=== PATIENT | male | born 2000 | race Two or more races ===

== ENCOUNTER 2021-06-02 19:09 | Emergency (ER) | payer OTHER, SELFPAY ==
--- NOTE | ~2021-06-02 | CT_ITS ---
EXAMINATION: NONCONTRAST HEAD CT NONCONTRAST MAXILLOFACIAL CT NONCONTRAST CERVICAL SPINE CT INDICATION INFORMATION: Trauma at work. COMPARISON: None. TECHNIQUE: Separate noncontrast CT examinations of the head, maxillofacial bones, and cervical spine were performed. Coronal and sagittal images were created for each examination at the technologist workstation. This CT examination was performed using dose optimization techniques as appropriate, variously including the following: *Automated exposure control *Adjustment of mA and/or kV according to patient size (this includes techniques or standardized protocols for targeted exams where dose is matched to indication/reason for exam; i.e. extremities or head) *Use of iterative reconstruction technique DLP: 399 mGy-cm FINDINGS: Head: There is no evidence of acute intracranial hemorrhage or territorial infarction. No abnormal mass effect or midline shift is seen. Hartley to white matter differentiation is well preserved. No extra-axial fluid collections are identified. No hydrocephalus. No significant volume loss. There is no abnormal attenuation within the brain parenchyma. No acute soft tissue abnormality. No calvarial fracture. The mastoid air cells are well aerated. Maxillofacial: No acute maxillofacial fractures are seen. The frontal, maxillary, ethmoid, and sphenoid sinuses are well aerated. The nasal septum is midline. The mandibular heads are well-seated in the condylar fossa. There are numerous periapical lucencies, largest occupying approximately 2 cm on sagittal image 124 off series 23 within right superior molars. The orbits demonstrate a normal appearance bilaterally. The globes are intact, and there are no suspicious findings to suggest retrobulbar hemorrhage. Cervical spine: There is anatomic alignment of the vertebral bodies and posterior elements. The atlantoaxial and atlantooccipital articulations are intact. Vertebral body heights and intervertebral disc spaces are maintained. No evidence of acute fracture. No prevertebral soft tissue swelling. Visualized portions of the lung apices are unremarkable. The thyroid gland is unremarkable. CT/CT cervical spine wo con IMPRESSION: No acute intracranial abnormality. No acute maxillofacial fractures. Incidental note is made of numerous large periapical lucencies for which dental consultation is advised.
[2021-06-02 19:25] VITALS: BP 117/67; PULSE 72; RESP 16; TEMP 37.4; O2SAT 97; BMI 29.9
--- NOTE | 2021-06-02 19:39 | ED.GENADULT ---
HPI - General Adult General Chief complaint: Wound/Laceration Stated complaint: lac to right eye Time Seen by Provider: 06/02/21 19:30 Source: patient Mode of arrival: ambulatory Limitations: no limitations History of Present Illness HPI narrative: A 1-year-old male presents to ED for right forehead laceration after wood Pallet at work fell on his head. Patient admits to falling to the ground due to head trauma from wood Pallet but did not lose consciousness. Patient denies any other trauma. Patient states no nausea, vomiting, or dizziness. Related Data Allergies Allergy/AdvReac Type Severity Reaction Status Date / Time No Known Allergies Allergy Unverified 01/03/20 17:28 [No Known Allergies*] poison letty Allergy Unknown rash Uncoded 06/18/14 00:00 Review of Systems Review of Systems: Wood Pallet fell on head Yes all other systems are reviewed and are negative [facility] Past Medical History Medical History (Updated 06/02/21 @ 21:38 by ALISA Huertas) No known health problems Social History Social History Advance Directives: No Advance Directives Information Provided: Yes Physical Exam ED Vital Signs: Vital Signs - 24 hr 06/02/21 19:25 Temperature 99.3 F Pulse Rate 72 Respiratory Rate 16 Blood Pressure 117/67 Pulse Oximetry 97 BMI result Body Mass Index 29.9 Const Orientation/consciousness: patient oriented x3 HENMT Head: Yes normal to inspection, Yes No palpable skull fracture present and Yes normocephalic Head images: 1. Small right forehead laceration. Mild tenderness. Negative for ecchymosis. 2. Small abrasion no active bleeding. 3. Dry blood. No active bleeding Eyes General: appearance normal, both eyes and all related structures Neck Neck: Yes normal visual inspection, Yes full ROM, Yes no lymphadenopathy, Yes no meningeal signs, Yes trachea midline, Yes supple, No anterior neck swelling and No tender Chest Chest palpation & inspection: normal inspection of the chest and normal palpation of entire chest wall Resp Effort & Inspection: normal respiratory effort and able to speak in complete sentences Auscultation: clear to auscultation bilaterally Cardio Jugular venous distension: no JVD Heart sounds: S1 normal heart sound present and S2 normal heart sound present GI Inspection: Yes normal to inspection and No abdominal wall ecchymosis Palpation (GI): Soft to palpation, not firm, nontender, no guarding and not rigid General: No CVA tenderness and Yes no CVA tenderness Back/Spine/Pelvis Back: no CVA tenderness, No CVA tenderness and No back tenderness Skin General skin exam: no rashes or lesions noted and elasticity normal Neuro General: patient oriented x3, gait normal, no meningeal signs and CN's II-XI intact bilaterally Cranial nerves: Yes CN's II-XII intact bilaterally Extrem General: Yes normal to inspection and Yes full ROM Psych Appearance: grossly normal, well kempt and not disheveled Course Course Course Narrative: Patient sent for images. Will do laceration repair. D-dimer ordered. Patient given Tdap Reevaluation(s) Reevaluation #1: Wound clean with sterile saline and Betadine iodine. Wound anesthetized with lidocaine 2% 5 mL. Size 5 nylon sutures was used. Four simple sutures placed waiting for imaging results Time: 21:20 Reevaluation #2: Images came back normal Time: 21:35 Medical Decision Making MDM Narrative Medical decision making narrative: Head injury. Facial laceration Discharge Plan Discharge Clinical Impression: Facial laceration Patient Disposition: Home, Self-Care Instructions: Care For Your Stitches (DC), Laceration (DC), Head Injury (ED) Additional Instructions: You're images came back normal or negative for any neck fracture, facial fracture, or brain bleed. Sutures will need to be removed in 7 days. Return to ED for any vomiting blood, severe headache, dizziness, rectal bleeding, bloody urine, chest pain, shortness of breath, abdominal pain, lethargy, altered mental status, or any other concerning symptoms. Referrals: [facility] [Outside] - 2 days (Head injury at work) Stand Alone Forms: Work/School Release Print Language: Citizen Of [place]
[2021-06-02] MEDS: Acetaminophen 325 MG TABLET 650 MG PO (19:47)
[2021-06-02] MEDS: Diphth,Pertus(ACell),Tet Adult 0.5 ML SYRINGE IM (19:54)
[2021-06-02] MEDS: Lidocaine HCl 2 % MPF 5 ML VIAL INFILTRATI (19:55)
== END 2021-06-02 21:56 | disposition home or self-care (01) ==
PROVIDERS: Emergency Provider Internal Medicine
DX: S01.111A Laceration without foreign body of right eyelid and periocular area, initial encounter (principal); G44.309 Post-traumatic headache, unspecified, not intractable; H57.11 Ocular pain, right eye; M54.2 Cervicalgia; W26.9XXA Contact with unspecified sharp object(s), initial encounter; Y93.9 Activity, unspecified; Y92.9 Unspecified place or not applicable; Y99.0 Civilian activity done for income or pay
CPT/HCPCS: 12011; 70450; 70486; 72125; 90471; 90715; 99283; 99284

== ENCOUNTER → 2021-06-05 09:23 | Outpatient (BNVA) | payer OTHER, SELFPAY | PROVIDERS: Visit Provider Internal Medicine | DX: S01.81XA Laceration without foreign body of other part of head, initial encounter (principal); W20.8XXA Other cause of strike by thrown, projected or falling object, initial encounter | CPT/HCPCS: 99203; 99212 ==

== ENCOUNTER → 2021-06-09 14:48 | Outpatient (BNVA) | payer OTHER, SELFPAY | PROVIDERS: Visit Provider Internal Medicine | DX: S01.81XA Laceration without foreign body of other part of head, initial encounter (principal); X58.XXXA Exposure to other specified factors, initial encounter | CPT/HCPCS: 99213 ==

== ENCOUNTER 2022-11-25 07:17 | Emergency (ER) | payer SELFPAY ==
--- NOTE | ~2022-11-25 | XR_ITS ---
EXAMINATION: XR HAND, RIGHT CLINICAL INFORMATION: Hand pain with hard mass just medial to the hypothenar eminence COMPARISON: None available. TECHNIQUE: PA, lateral, and oblique views of the right hand. FINDINGS: The bones and soft tissues are normal. No fracture. Alignment is anatomic. Joint spaces are maintained. No erosions or soft tissue calcifications. XR/XR hand RT min 3V IMPRESSION: Normal right hand.
[2022-11-25 07:26] VITALS: BP 109/56; PULSE 82; RESP 16; TEMP 36.9; O2SAT 95; BMI 25.0
--- NOTE | 2022-11-25 07:49 | ED_ITS ---
HPI - Extremity Problem General Chief complaint: Extremity Injury, Upper Stated complaint: R hand swelling Time Seen by Provider: 11/25/22 07:27 Source: patient Mode of arrival: ambulatory History of Present Illness HPI Narrative: 22-year-old male who reports worsening right, Moss hand pain, he is [id number] and works making pallets. Patient states that the pain at the palm has increasingly made it difficult for him to flex his hand but denies any fever, chills, injuries. Related Data Allergies Allergy/AdvReac Type Severity Reaction Status Date / Time No Known Allergies Allergy Unverified 01/03/20 17:28 [No Known Allergies*] poison letty Allergy Unknown rash Uncoded 06/18/14 00:00 Review of Systems Review of Systems: Pertinent positives and negatives as stated in [facility] Past Medical History Source: nursing notes reviewed Medical History No known health problems Social History Social History Advance Directives: No Advance Directives Information Provided: Yes Physical Exam Vital Signs: Vital Signs: Last Vital Signs Temp 98.5 F 11/25/22 07:26 Pulse 82 11/25/22 07:26 Resp 16 11/25/22 07:26 BP 109/56 L 11/25/22 07:26 Pulse Ox 95 11/25/22 07:26 O2 Del Method Nasal Cannula 11/25/22 07:26 BMI result Body Mass Index 25.0 VITAL SIGNS: Reviewed. GENERAL: Well developed, well nourished, in no acute distress. HEAD: Normocephalic/atraumatic EYES: PERRLA, EOMI EARS: Ext canals without abnormality NOSE: Nares patent bilateral OROPHARYNX: no oral lesions noted, posterior pharynx clear NECK: Supple, no adenopathy LUNGS: Normal breath sounds. No adventitious sounds or accessory muscle use. SpO2<95> CARDIOVASCULAR: Regular rate and rhythm without noted murmurs ABDOMEN: Soft, non-tender, non-distended with bowel sounds. MUSCULOSKELETAL: No tenderness, deformities, or effusions noted on gross inspect ion. EXTREMITIES: No cyanosis, clubbing or edema. RIGHT HAND: There is no erythema, induration, there is a mild swelling noted just radial to the hypothenar that is firm, mild tenderness to palpation, no fluctuance patient does experience difficulty with flexion and has discomfort within the forearm when this action is performed,apposition is most difficult for thumb to pinky SKIN: Inspection of the skin reveals no rashes NEUROLOGIC: Alert and oriented x 4. Strength and sensation to light touch were grossly intact x 4. Medical Decision Making Medical Decision Making MDM Narrative: 22-year-old male with history and clinical presentation, DDX: Fracture, hyperkeratosis, deep infection? I reviewed all investigations/imaging studies and there is no evidence of acute fracture dislocation otherwise my interpretation is in agreement with radiology's impression. My interpretation is patient has Dupuytren's contracture. Patient will be referred to Orthopedics as well as [facility] and instructed on Tylenol and ibuprofen. Differential Diagnosis Differential Diagnoses: The differential diagnosis associated with the presentation includes Please see the discussion above Admission/Observation Consideration of admission/observation: Escalation of care including admission/observation considered Please see the discussion above Radiology Impression Discussion of test interpretation with radiology: I have reviewed the radiologist's reading. Radiologist Impression: Please see the discussion above Discharge Plan Discharge Clinical Impression: Dupuytren's contracture of right hand Patient Disposition: Home, Self-Care Instructions: Dupuytren's Contracture (ED) Additional Instructions: 1. Please follow up with [facility], referral has been provided to you below. 2. You have also been given a referral to follow-up with orthopedics and should call their office today to set up an appointment for evaluation. 3. Please take [id number] Tylenol/ibuprofen as needed for pain control. Return to the ER for any worsening symptoms. Referrals: [facility] [Provider Group] Kolton Mendoza MD [Physician] -
== END 2022-11-25 09:32 | disposition home or self-care (01) ==
PROVIDERS: Emergency Provider Student in an Organized Health Care Education/Training Program
DX: M72.0 Palmar fascial fibromatosis [Dupuytren] (principal); M79.89 Other specified soft tissue disorders; M79.641 Pain in right hand
CPT/HCPCS: 73130; 99282; 99283

== ENCOUNTER 2023-02-20 09:16 | Emergency (ER) | payer MEDICAID, SELFPAY ==
--- NOTE | ~2023-02-20 | XR_ITS ---
EXAMINATION: XR WRIST, RIGHT XR HAND, RIGHT CLINICAL INFORMATION: Punched something this morning. Injury COMPARISON: 11/25/2022 TECHNIQUE: PA, lateral, and oblique views of the right and right hand FINDINGS: RIGHT: There is a slightly impacted and comminuted fracture of the distal fifth metacarpal with approximately 35 degree distal volar angulation angulation. I do not appreciate any obvious extension to the articular surface. No other acute bony abnormality seen. Soft tissue swelling in the region of the fifth metacarpal. XR/XR hand wrist RT IMPRESSION: Impacted and comminuted distal fifth metacarpal fracture with distal volar angulation.
[2023-02-20 09:23] VITALS: BP 111/65; PULSE 78; RESP 16; TEMP 36.8; O2SAT 98; BMI 28.8
--- NOTE | 2023-02-20 09:38 | PC.NURSE ---
Pt rpeorting he punched a wall yesterday out of anger, slight pain noted yesterday but no swelling/ This morning when he woke up swelling noted, with increased pain and numbness. +CMS, able to move fingers at this time.
--- NOTE | 2023-02-20 09:54 | ED_ITS ---
HPI - Extremity Problem General Chief complaint: Extremity Injury, Upper Stated complaint: R hand inj Time Seen by Provider: 02/20/23 09:36 Source: patient Mode of arrival: ambulatory Limitations: no limitations History of Present Illness HPI Narrative: Patient is a 22 old male presents emergency department for evaluation of pain to the right hand predominately at the base of the 4th and 5th digit into the 5th digit with decreased AROM to both digits. He has localized swelling over the dorsum. a was yesterday after punching a wall out of anger. He is right- hand dominant. Denies numbness tingling or cold sensation to the hand. Otherwise has no additional complaints. Related Data Previous Rx's Medication Instructions Recorded oxycodone 5 mg tablet 5 mg PO Q6H PRN pain #10 tabs 02/20/23 Allergies Allergy/AdvReac Type Severity Reaction Status Date / Time No Known Allergies Allergy Verified 02/20/23 09:22 [No Known Allergies*] poison letty Allergy Unknown rash Uncoded 06/18/14 00:00 Review of Systems Review of Systems: Yes all other systems are reviewed and are negative [facility] Past Medical History Attestation statement: The following information was validated with the patient. Source: old records reviewed Medical History No known health problems Social History Social History Advance Directives: No Advance Directives Information Provided: No Physical Exam Vital Signs: Vital Signs: Last Vital Signs Temp 98.2 F 02/20/23 09:23 Pulse 78 02/20/23 09:23 Resp 16 02/20/23 09:23 BP 111/65 02/20/23 09:23 Pulse Ox 98 02/20/23 09:23 O2 Del Method Room Air 02/20/23 09:23 BMI result Body Mass Index 28.8 Appearance: Alert.?Oriented to person, place and time. No acute distress.?Normal affect. Neck: Normal inspection.? Neck supple.?? CVS: Heart sounds normal. Normal heart rate and rhythm.? Pulses normal.?? Respiratory: No respiratory distress.? Lung sounds clear to auscultation bilaterally?? Skin: Skin warm and dry.? Normal skin color.? Extremities: Dorsum of right hand with localized swelling, diffuse tenderness over the 4th and 5th metacarpal decreased AROM to 4th and 5th digit. 2+ radial and ulnar pulse bilaterally. Full AROM to the wrist. CMS intact Neuro: Moves all extremities spontaneously. Sensation intact bilaterally. Ambulates with normal steady gait. Medical Decision Making Medical Decision Making MDM Narrative: patient is a 22 old [id number] male presenting to emergency department from traumatic right hand pain after punching a wall as per HPI. Physical exam findings noted in the above section. Obtained XR imaging to exclude fracture/ dislocation, upon my interpretation he has a fracture to the 5th metacarpal neck, which is in agreement with radiologist impression, he was placed in an ulnar gutter splint, remained neurovascularly intact distally after application, discussed RICE, pain management with acetaminophen/ ibuprofen, s ent prescription for oxycodone to patient's pharmacy for severe pain, educated on precautions with usage, [facility] reviewed, no conflicts. Provided with contact information for orthopedics to follow up outpatient. Discussed worrisome signs and symptoms that would warrant re-evaluation emergency department. All questions answered. Stable for discharge. Differential Diagnosis Differential Diagnoses: The differential diagnosis associated with the presentation includes ( As noted above) Independent Interpretation I performed an independent interpretation of an: Plain X-Ray ( as noted above) Radiology Impression Discussion of test interpretation with radiology: I have reviewed the radiologist's reading. External Record Review External record reviewed: Other ([facility]) Prescription Management I considered prescription management with: Pain Medication Procedures Orthopedic Splinting/Casting Injury #1: Side: right Upper Extremity Injury Location: hand Upper Extremity Immobilizer: ulnar gutter Discharge Plan Discharge Clinical Impression: Closed fracture of 5th metacarpal Qualifiers: Encounter type: initial encounter Metacarpal location: neck Laterality: right Patient Disposition: Home, Self-Care Instructions: Hand Fracture (ED) Additional Instructions: as discussed, you do have a fracture in the 5th metacarpal, a bone in your hand just below the knuckle. A splint was placed, this must remain in place at all times a cannot get wet. He will need to follow up with Orthopedics, please call the office 1st thing tomorrow morning to arrange for a follow-up visit. Apply ice 10-15 minutes 3-4 times daily, You can take ibuprofen 200 mg, 3 tablets (600mg) every 6-8 hours as needed for pain, in addition to Tylenol 500 mg, 2 tablets (1,000mg) every 4-6 hours as needed for pain, but not to exceed 3 doses daily (3,000mg).? have sent a prescription for oxycodone to your pharmacy to use as needed for severe pain uncontrolled with Tylenol and ibuprofen. This is a narcotic medication, it may make you drowsy, you should not drive, drink alcohol, or work while taking this medication. Please return back to emergency department any new or worsening symptoms or concerns. Prescriptions: New oxycodone 5 mg tablet 5 mg PO Q6H PRN (Reason: pain) Qty: 10 0RF Rx Instructions: Partial Fill upon patient request. Referrals: Jodie العلي MD [Physician] - Stand Alone Forms: Work/School Release
== END 2023-02-20 10:28 | disposition home or self-care (01) ==
PROVIDERS: Emergency Provider Emergency Medicine
DX: S62.339A Displaced fracture of neck of unspecified metacarpal bone, initial encounter for closed fracture (principal); M79.641 Pain in right hand; W22.09XA Striking against other stationary object, initial encounter; Y93.9 Activity, unspecified; Y92.9 Unspecified place or not applicable; Y99.9 Unspecified external cause status
CPT/HCPCS: 73110; 73130; 99284

== ENCOUNTER 2023-02-25 08:39 | Outpatient (REF) | payer MEDICAID, SELFPAY ==
--- NOTE | ~2023-02-25 | XR_ITS ---
EXAMINATION: XR HAND, RIGHT CLINICAL INFORMATION: Pain. COMPARISON: Prior radiographs, most recently 02/20/2023. TECHNIQUE: PA, lateral, and oblique views of the right hand. FINDINGS: Bony alignment and mineralization are normal. There is stable alignment of a mildly angulated, comminuted boxer's fracture of the right fifth metacarpal. Fracture lines are again seen, and there is no significant new callus formation. No dislocation is seen. The proximal and distal carpal rows are intact. No focal soft tissue swelling, gas or foreign body is seen. XR/XR hand RT min 3V IMPRESSION: There is stable alignment of a comminuted, mildly angulated boxer's fracture of the right fifth metacarpal bone.
== END 2023-02-25 08:40 | disposition home or self-care (01) ==
LOC: HO.HOSX 08:39
PROVIDERS: Visit Provider Physician Assistant
DX: S62.336A Displaced fracture of neck of fifth metacarpal bone, right hand, initial encounter for closed fracture (principal)
CPT/HCPCS: 26600; 73130; 99212

== ENCOUNTER 2023-02-25 13:26 | Outpatient (AMB) | payer MEDICAID, SELFPAY ==
[2023-02-25 13:32] VITALS: BMI 28.8
--- NOTE | 2023-02-25 13:32 | A.OFFVIS_ITS ---
Intake Vital Signs 02/25/23 13:32 Height 5 ft 5 in Weight 173 lb BMI 28.8 Handedness Right Intake Visit Reasons: FC- FX of 5th metacarpal Rt hand Intake Note: Miguel Ángel is a 22 year old right hand dominant male who presents today for a evaluation for his right 5th metacarpal, DOI 02/19/23. Patient reports punching a while out of anger. He states not being able to move his pinky due to it causing him a lot of pain. Denies numbness and tingling. Allergies No Known Allergies [No Known Allergies*] Allergy (Verified 02/25/23 13:33) poison letty Allergy (Unknown, Uncoded 06/18/14 00:00) rash HPI FC- FX of 5th metacarpal Rt hand HPI Details 22-year-old right hand dominant male who presents to the office today for right 5th metacarpal injury s/p punching out of anger, 02/19/23. He states he is unable to move his pinky finger as he is experiencing sever pain upon movement. he denies any numbness or tingling. [facility] Medical History No known health problems Review of Systems Const All systems reviewed & are unremarkable except as noted in HPI and below Physical Exam Vital Signs: BMI result Body Mass Index 28.8 Const General: cooperative and no acute distress Orientation/consciousness: patient oriented x3 Resp Effort & Inspection: normal respiratory effort and able to speak in complete sentences Cardio Peripheral pulses: Peripheral pulses 2+ throughout Neuro General: patient oriented x3 Extrem Other: Right hand: Normal to inspection. There is some tenderness over the neck of the 5th metacarpal. There is no scissoring or angulation of the small finger. He can fully extend and bring his hand to a closed fist. Office Procedures Casting/Splints 38217-Wasa/Wrist Cast Application Procedure code (CPT) selection complete Fracture Care Fracture Billing Code: Fracture Billing Code Results Reviewed Results Reviewed: Xrays were obtained in the office today and personally reviewed by me of the right hand show minimally displaced 5th metacarpal neck fx Assessment & Plan Assessment & Plan (1) Anibal's metacarpal fracture, neck, closed: Code(s): S62.339A - Displaced fracture of neck of unspecified metacarpal bone, initial encounter for closed fracture Qualifiers: Encounter type: initial encounter Qualified Code(s): S62.339A - Displac ed fracture of neck of unspecified metacarpal bone, initial encounter for closed fracture Plan He was placed in a finger spica cast for the next 3-4 weeks at which point he will return to the office for cast off and new x-rays. He will avoid any type of lifting, pushing, pulling or carrying greater than a cellphone to prevent risk of further displacement. He does express understanding and will follow-up as discussed. Orders: Orders XR hand RT min 3V 02/25/23 M79.641 - Pain in right hand Patient Instructions: Scribed for Uche Nicholas PA-C, by Darin Grove adjunct faculty for medical terminology, on 02/25/2023 at 1:30 PM EST. IUche PA-C, have personally reviewed and agree with the information entered by the scribe. Coding Level of Care Code New Pt Level 3 (70263) Diagnoses Closed boxer's fracture, initial encounter S62.339A Encounter type: initial encounter CPT Codes Casting - CPT: 30278-Ifco/Wrist Cast Application ([id number]) Fracture Care - Fracture Billing Code: Fracture Billing Code ([id number])
== END 2023-02-25 14:23 | disposition home or self-care (01) ==
PROVIDERS: Visit Provider Physician Assistant
DX: S62.306A Unspecified fracture of fifth metacarpal bone, right hand, initial encounter for closed fracture (principal); W22.09XA Striking against other stationary object, initial encounter
CPT/HCPCS: 26600; 99203

== ENCOUNTER 2023-03-24 10:06 | Outpatient (AMB) | payer MEDICAID, SELFPAY ==
--- NOTE | 2023-03-24 10:10 | A.OFFVIS_ITS ---
Intake Vital Signs 03/24/23 10:12 Height 5 ft 5 in Weight 173 lb BMI 28.8 Intake Visit Reasons: ov- FX of 5th metacarpal Rt hand Intake Note: Miguel Ángel 22 yr old male presents today for his follow up visit for his right boxers fx from 02/19/23. Cast removed and xrays updated in office. Patient reports he has some sore and mild aches last night. Allergies No Known Allergies [No Known Allergies*] Allergy (Verified 03/24/23 10:11) poison letty Allergy (Unknown, Uncoded 03/24/23 10:11) rash HPI ov- FX of 5th metacarpal Rt hand HPI Details 22-year-old male who returns to the [facility] today for a follow-up of right 5th metacarpal fracture, 02/19/23. He states he has mild soreness and achiness in his hand last night but is doing well otherwise. 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 He has no other concerns today. [facility] Medical History No known health problems Review of Systems Const All systems reviewed & are unremarkable except as noted in HPI and below Physical Exam Vital Signs: BMI result Body Mass Index 28.8 Const General: cooperative and no acute distress Orientation/consciousness: patient oriented x3 Resp Effort & Inspection: normal respiratory effort and able to speak in complete sentences Cardio Peripheral pulses: Peripheral pulses 2+ throughout Neuro General: patient oriented x3 Extrem Other: Right hand: Normal to inspection. There is no tenderness over the neck of the 5th metacarpal. There is no scissoring or angulation of the small finger. He can fully extend and bring his hand to a closed fist. Results Reviewed Results Reviewed: Xrays were obtained in the office today and personally reviewed by me of the right hand show minimally displaced 5th metacarpal neck fx with interval healing Assessment & Plan Assessment & Plan (1) Boxmax's metacarpal fracture, neck, closed: Code(s): S62.339A - Displaced fracture of neck of unspecified metacarpal bone, initial encounter for closed fracture Qualifiers: Encounter type: initial encounter Qualified Code(s): S62.339A - Displaced fracture of neck of unspecified metacarpal bone, initial encounter for closed fracture Plan He was transitioned to removable Velcro wrist splint which he will wear like a cast. He can remove for hygiene only. He will continue with the current work status. He will avoid any type of lifting, pushing, pulling or carrying greater than a cellphone with the right hand. He will see us back in 6-8 weeks with x- rays, sooner if needed. Orders: Orders XR hand RT min 3V Today M79.641 - Pain in right hand Patient Instructions: Scribed for Uche Nicholas PA-C, by Darin Grove medical front desk coordinator, on 03/24/2023 at 10:15 AM EST. I, Uche Nicholas PA-C, have personally reviewed and agree with the information entered by the scribe. Coding Level of Care Code Global (97387) Diagnoses Closed boxer's fracture, initial encounter S62.339A Encounter type: initial encounter
[2023-03-24 10:12] VITALS: BMI 28.8
== END 2023-03-24 10:38 | disposition home or self-care (01) ==
PROVIDERS: Visit Provider Physician Assistant
DX: S62.339A Displaced fracture of neck of unspecified metacarpal bone, initial encounter for closed fracture (principal)
CPT/HCPCS: 99024

== ENCOUNTER 2023-03-24 12:37 | Outpatient (REF) | payer SELFPAY ==
--- NOTE | ~2023-03-24 | XR_ITS ---
EXAMINATION: XR HAND, RIGHT CLINICAL INFORMATION: Pain in right hand. COMPARISON: 02/25/2023 TECHNIQUE: PA, lateral, and oblique views of the right hand. FINDINGS: Redemonstration of a comminuted, mildly angulated fracture at the distal aspect of the fifth metatarsal. There is some increased density along the fracture line, characteristic of healing. XR/XR hand RT min 3V IMPRESSION: Healing comminuted, mildly angulated fracture of the distal aspect of the fifth metacarpal. Fracture lines are still visible.
== END 2023-03-24 12:38 | disposition home or self-care (01) ==
LOC: HO.HOSX 12:37
PROVIDERS: Visit Provider Physician Assistant
DX: M79.641 Pain in right hand (principal); S62.336D Displaced fracture of neck of fifth metacarpal bone, right hand, subsequent encounter for fracture with routine healing; X58.XXXD Exposure to other specified factors, subsequent encounter
CPT/HCPCS: 73130; 99212

== ENCOUNTER 2023-03-30 01:54 | Emergency (ER) | payer SELFPAY ==
[2023-03-30 02:13] VITALS: BP 133/64; PULSE 67; RESP 18; TEMP 36.9; O2SAT 99
[2023-03-30] MEDS: Acetaminophen 325 MG TABLET 650 MG PO (07:32)
[2023-03-30 07:33] VITALS: BP 111/68; PULSE 64; RESP 18; TEMP 36.8; O2SAT 100
--- NOTE | 2023-03-30 07:34 | PC.NURSE ---
pt continues to have dental pain, pt offered tylenol or motrin, pt felt tylenol would be better- pt medicated with tylenol per order, pt states he has been waiting since 0130 in the morning and inquiring about how much longer it will be as he will likely just call his dentist. This nurse explained the wait and if he does get ahold of his dentist if he could kindly tell registration that he is leaving prior to his departure that would be appreciated.
--- NOTE | 2023-03-30 09:05 | ED.GENADULT ---
HPI - General Adult General Chief complaint: Dental/Oral Stated complaint: right sided pain Time Seen by Provider: 03/30/23 09:04 Source: patient Mode of arrival: ambulatory Limitations: no limitations History of Present Illness HPI narrative: Patient is a 22 year old assigned male at with no reported medical history presenting to the emergency department today with right sided dental pain. Patient states that since yesterday he has had worsening right sided dental pain. Patient denies any dizziness, lightheadedness, abdominal pain, nausea, vomiting, fever, chills, blurry vision, double vision, loss of vision, chest pain, difficulty breathing, shortness of breath, back pain, night sweats, pain with urination, increased urinary frequency, increased urinary urgency, blood in his urine or stool, syncope or a near syncopal episode, recent trauma or falls, bowel incontinence, bladder incontinence, bowel retention, bladder retention, or any other complaints at this time. Onset (ago): day(s) (1) Location: mouth Radiation: non-radiation Severity: mild Severity scale (1-10): 2 Quality: aching and dull Pain Consistency: constant Relieving factors: none Exacerbating factors: none Associated symptoms: denies other symptoms Treatments prior to arrival: none Related Data Home Medications Medication Instructions Recorded Confirmed ibuprofen 800 mg tablet 800 mg PO TID 03/24/23 Previous Rx's Medication Instructions Recorded chlorhexidine gluconate 0.12 % 15 ml buccal BID #118 mL 03/30/23 mouthwash (Peridex) naproxen 500 mg tablet 500 mg PO BID 7 days #14 tabs 03/30/23 penicillin V potassium 500 mg 500 mg PO BID 10 days #20 tabs 03/30/23 tablet Allergies Allergy/AdvReac Type Severity Reaction Status Date / Time No Known Allergies Allergy Verified 03/30/23 02:13 [No Known Allergies*] poison letty Allergy Unknown rash Uncoded 03/24/23 10:11 Review of Systems Constitutional: Constitutional: Reports no additional constitutional complaints, Denies chills, Denies fever(s) and Denies night sweats Eyes: Eyes: Reports no additional eye complaints, Denies blurry vision, Denies change in vision, Denies diplopia, Denies eye discharge, Denies loss of vision and Denies eye pain ENT: Denies dizziness Comments: right sided dental pain Cardiovascular: Cardiovascular: Reports no additional cardiovascular complaints, Denies chest pain, Denies lightheadedness, Denies Loss of Consciousness and Denies dyspnea Respiratory: Respiratory: Reports no additional respiratory complaints and Denies dyspnea Gastrointestinal: Gastrointestinal: Reports no additional gastrointestinal complaints, Denies abdominal pain, Denies melena, Denies hematochezia, Denies change in bowel habits and Denies change in stool character Genitourinary: Genitourinary: Reports no additional male genitourinary complaints, Denies hematuria, Denies oliguria, Denies difficulty urinating, Denies dysuria, Denies urinary frequency, Denies urinary hesitancy, Denies urinary incontinence and Denies urinary urgency Musculoskeletal: Musculoskeletal: Reports no additional musculoskeletal complaints, Denies numbness and Denies tingling Neurologic: Denies dizziness, Denies loss of vision, Denies numbness and Denies tingling Psychiatric: Psychiatric: Reports no additional psychiatric complaints Endocrine: Endocrine: Reports no additional endocrine complaints Hematologic/Lymphatic: Hematologic/Lymphatic: Reports no additional hematologic/lymphatic complaints Allergic/Immunologic: Allergic/Immunologic: Reports no additional allergic/immunologic complaints PMFSH Past Medical History Attestation statement: The following information was validated with the patient. Source: old records reviewed and nursing notes reviewed Medical History No known health problems Social History Social History Smoked in Last 30 Days: No Use of substances other than those prescribed or required for medical reasons: Yes Substance Use Type: Marijuana Substance Use Frequency: Occasionally Advance Directives: No Advance Directives Information Provided: No Physical Exam ED Vital Signs: Vital Signs - 24 hr 03/30/23 02:13 03/30/23 07:33 03/30/23 09:18 Temperature 98.5 F 98.3 F 98.2 F Pulse Rate 67 64 64 Respiratory Rate 18 18 16 Blood Pressure 133/64 111/68 131/55 L Pulse Oximetry 99 100 98 Oxygen Delivery Method Room Air Room Air Room Air BMI result Body Mass Index 30.0 Const General: cooperative, no acute distress, alert and awake Nutritional Appearance: well nourished Orientation/consciousness: patient oriented x3 Limitations: no limitations HENMT Head: Yes normal to inspection and Yes atraumatic Ears: hearing grossly normal bilaterally and external ears normal General nose exam: Normal external nose present, no nasal discharge noted and no epistaxis Face and sinus: Yes normal facial exam, No abrasion and No laceration Mouth: Normal oral and palatal mucosa present, no drooling and no muffled voice Teeth image: 1. very minimal swelling and erythema present, no fluctuance Eyes General: appearance normal, both eyes and all related structures Periorbital: periorbital findings normal Eyelids: Yes eyelids normal Conjunctivae: conjunctivae normal Pupils: Equal, round and reactive pupils present EOM: EOMs intact bilaterally Neck Neck: Yes normal visual inspection, Yes full ROM and Yes no lymphadenopathy Chest Chest palpation & inspection: normal inspection of the chest Resp Effort & Inspection: normal respiratory effort and able to speak in complete sentences GI Inspection: Yes normal to inspection Neuro General: patient oriented x3 and moves all extremities Cranial nerves: Yes Equal, round and reactive pupils present Cognition (Neuro): normal cognition Motor exam (neuro): 5/5 motor strength present throughout Sensory Exam: Normal double simultaneous stimulation for sensation Coordination: [id number] test normal Extrem General: Yes normal to inspection, Yes full ROM and Yes capillary refill normal Psych Appearance: grossly normal Mental Status: mental status grossly normal Affect: normal affect Attitude: cooperative Thought process: Normal thought process present Thought content: Normal thought content present Insight: Good insight present (Psych) Medications Administered Discontinued Medications Generic Name Dose Route Start Last Admin Trade Name Marlee PRN Reason Stop Dose Admin Acetaminophen 650 mg 03/30/23 07:29 03/30/23 07:32 Acetaminophen 325 Mg Tablet PO 03/30/23 07:30 650 mg ONCE ONE Administration Medical Decision Making Medical Decision Making [facility] Narrative: Patient is a 22 year old assigned male at with no reported medical history presenting to the emergency department today with right sided dental pain. Patient's physical exam was as noted in the physical exam portion of this note. Patient's clinical presentation is most consistent with a developing dental abscess. I explained my physical exam findings to the patient. I answered all questions asked by the patient. I stressed the importance of the patient taking his medication as prescribed. I stressed the importance of the patient following up with his primary care provider and a dentist. I stressed the importance of the patient returning to the emergency department immediately if his symptoms were to worsen or if he were to develop any dizziness, shortness of breath, difficulty breathing, chest pain, blurry vision, loss of vision, nausea, vomiting, abdominal pain, fever, chills, back pain, or any other complaints. Patient verbalized agreement and understanding with this treatment plan and discharge. Differential Diagnosis Differential Diagnoses: The differential diagnosis associated with the presentation includes Dental pain Tooth pain Dental abscess Prescription Management I considered prescription management with: Pain Medication (patient prescribed pain medication for dental pain) and Antibiotic (patient prescribed an antibiotic for developing dental abscess) Discharge Plan Discharge Clinical Impression: Dental abscess, Toothache Patient Disposition: Home, Self-Care Instructions: Dental Abscess (ED), Toothache (ED) Additional Instructions: Follow up with your primary care provider and a dentist. Return to the emergency department immediately if your symptoms worsen or if you develop any dizziness, shortness of breath, difficulty breathing, chest pain, blurry vision, loss of vision, nausea, vomiting, abdominal pain, fever, chills, back pain, or any other complaints. Call or visit any of the clinics below to establish with a dentist: [facility] [address] [place] [address] [facility] [address] [facility], [address] [address] [facility] [address] [place] [id number] [facility] [address] [place] [address] [place] [address] [place] [address] Prescriptions: New penicillin V potassium 500 mg tablet 500 mg PO BID 10 Days Qty: 20 0RF naproxen 500 mg tablet 500 mg PO BID 7 Days Qty: 14 0RF chlorhexidine gluconate [Peridex] 0.12 % mouthwash 15 ml buccal BID Qty: 118 0RF No Action ibuprofen 800 mg tablet 800 mg PO TID Referrals: [facility] Family Medicine [Provider Group] (Call to establish and follow up with a primary care provider. If you already have a primary care provider, please follow up with them.) [facility] Primary Care[facility] [Provider Group] (Call to establish and follow up with a primary care provider. If you already have a primary care provider, please follow up with them.) [facility] Primary Care,Daniel [Provider Group] (Call to establish and follow up with a primary care provider. If you already have a primary care provider, please follow up with them.) Stand Alone Forms: Work/School Release Interventions: ED Discharge Assessment Last Done: 03/30/23 09:24 Discharge Date/Time: 03/30/23 09:24 Print Language: Slovenian
[2023-03-30 09:18] VITALS: BP 131/55; PULSE 64; RESP 16; TEMP 36.8; O2SAT 98
== END 2023-03-30 09:24 | disposition home or self-care (01) ==
PROVIDERS: Emergency Provider Student in an Organized Health Care Education/Training Program
DX: K04.7 Periapical abscess without sinus (principal); K08.89 Other specified disorders of teeth and supporting structures; F12.90 Cannabis use, unspecified, uncomplicated
CPT/HCPCS: 99283; 99284

== ENCOUNTER 2023-05-05 09:34 | Outpatient (AMB) | payer SELFPAY ==
--- NOTE | 2023-05-05 09:44 | MHC.OFFVIS ---
Intake Vital Signs 05/05/23 09:50 Height 5 ft 5 in Weight 180 lb BMI 30.0 Intake Visit Reasons: ov- Rt 5th metacarpal fx w xrays Intake Note: Miguel Ángel beck 22 year old male presents today for a follow up of right boxers fx from 02/19/23. Xrays updated while in office. Patient reports that he is doing well, however with the cold weather he has been experiencing pain at the MCP of his 5th digit. He continues to wear wrist brace as instructed. Allergies No Known Allergies [No Known Allergies*] Allergy (Verified 05/05/23 09:48) poison letty Allergy (Unknown, Uncoded 05/05/23 09:48) rash HPI ov- Rt 5th metacarpal fx w xrays HPI Details 22-year-old male who returns to the office today for a follow-up of right 5th metacarpal fracture, 02/19/23. He reports he has improvement in his pain however he does c/o pain at the MCP of his 5th digit during cold weathers. He continues to wear his wrist brace as instructed. He has no other concerns today. [facility] Medical History No known health problems Social History Substance Use Type: Marijuana Review of Systems Const All systems reviewed & are unremarkable except as noted in HPI and below Physical Exam Vital Signs: BMI result Body Mass Index 30.0 Extrem Other: Right hand: Normal to inspection. No tenderness over the fracture site. He can make a full fist and fully extend all digits. NVI. Results Reviewed Results Reviewed: X-rays of the right hand obtained in the office today show a well healed 5th metacarpal neck fracture. Assessment & Plan Assessment & Plan (1) Anibal's metacarpal fracture, neck, closed: Code(s): S62.339A - Displaced fracture of neck of unspecified metacarpal bone, initial encounter for closed fracture Qualifiers: Encounter type: subsequent encounter Fracture healing: with routine healing Qualified Code(s): S62.339D - Displaced fracture of neck of unspecified metacarpal bone, subsequent encounter for fracture with routine healing Plan He will increase activity as tolerated. He has no restrictions at work and if symptoms persist or worsens, patient will contact the office, otherwise follow-up as needed. Orders: Orders XR hand RT min 3V Today M79.641 - Pain in right hand Patient Instructions: Scribed for Uche Nicholas PA-C, by Darin Grove medical technologist chief, on 05/05/2023 at 9:45 AM EST. I, Uche Nicholas PA-C, have personally reviewed and agree with the information entered by the scribe. Coding Level of Care Code Global (19271) Diagnoses Closed boxer's fracture with routine healing, subsequent encounter S62.339D Encounter type: subsequent encounter Fracture healing: with routine healing
== END 2023-05-05 09:58 | disposition home or self-care (01) ==
PROVIDERS: Visit Provider Physician Assistant
DX: S62.339D Displaced fracture of neck of unspecified metacarpal bone, subsequent encounter for fracture with routine healing (principal)
CPT/HCPCS: 99024

== ENCOUNTER 2023-05-05 12:10 | Outpatient (REF) | payer MEDICAID, SELFPAY ==
--- NOTE | ~2023-05-05 | XR_ITS ---
EXAMINATION: XR HAND, RIGHT CLINICAL INFORMATION: Pain. COMPARISON: Prior radiographs, most recently 03/24/2023. TECHNIQUE: PA, lateral, and oblique views of the right hand. FINDINGS: The previously noted mildly angulated boxers-type fracture of the right fifth metacarpal neck now appears healed, without residual fracture line. There is stable mild apex dorsal angulation. No dislocation is seen. There is no focal soft tissue swelling, gas or foreign body. XR/XR hand RT min 3V IMPRESSION: The previously noted boxer's-type fracture of the right fifth metacarpal neck now appears healed, with mild apex dorsal angulation.
== END 2023-05-05 12:11 | disposition home or self-care (01) ==
LOC: HO.HOSX 12:10
PROVIDERS: Visit Provider Physician Assistant
DX: S62.336D Displaced fracture of neck of fifth metacarpal bone, right hand, subsequent encounter for fracture with routine healing (principal)
CPT/HCPCS: 73130; 99212

== ENCOUNTER 2023-06-18 12:13 | Emergency (ER) | payer MEDICAID, SELFPAY | END 2023-06-18 14:56 | disposition left against medical advice (07) | PROVIDERS: Emergency Provider Emergency Medicine | DX: Z53.21 Procedure and treatment not carried out due to patient leaving prior to being seen by health care provider (principal); K08.89 Other specified disorders of teeth and supporting structures ==

== ENCOUNTER 2023-10-04 08:22 | Emergency (ER) | payer MEDICAID, SELFPAY ==
--- NOTE | 2023-10-04 08:30 | ECG_ITS ---
Test Reason : CP Blood Pressure : / mmHG Vent. Rate : 064 BPM Atrial Rate : 064 BPM P-R Int : 108 ms QRS Dur : 086 ms QT Int : 404 ms P-R-T Axes : 003 064 047 degrees QTc Int : 416 ms Sinus rhythm with sinus arrhythmia with short AR Otherwise normal ECG No previous ECGs available Referred By: Generic ED Physician Electronically Signed By:Alin Borrero
[2023-10-04 08:38] VITALS: BP 105/67; PULSE 70; RESP 18; TEMP 37.1; O2SAT 99; BMI 26.2
[2023-10-04 09:10] LABS: IDNOW Serial# 58CA691E
[2023-10-04 09:11] LABS: Strep A Nucleic Acid Negative (Negative)
--- NOTE | 2023-10-04 09:21 | ED_ITS ---
HPI - URI/Sore Throat General Chief Complaint: Upper Respiratory Symptoms Stated Complaint: Chest pain, SOB Time Seen by Provider: 10/04/23 09:02 Source: patient Mode of arrival: ambulatory Limitations: no limitations History of Present Illness ED Provider: Meryl Piper PA-C HPI Narrative: 23 yo male with no medical history presents to the ER for evaluation of central substernal chest pains along with cough, shortness of breath, headaches and body aches that started 3 days ago. States the pain in his chest is constant at a mild pain, usually around 2, it gets worse when he moves, coughs or takes a big deep breath. It does not radiate. It is an aching type of pain. He does not have any asthma, no wheezing or congestion. He is tolerating p.o., denies any nausea, vomiting, diarrhea, abdominal pain. No fever but he has had some chills. No known sick contacts. MD elicited complaint: cough and other ( Shortness of breath, chest pain, body aches) Onset (ago): day(s) (3) Consistency: constant Severity: moderate Able to tolerate fluids by mouth: Yes Exacerbating factors: deep breaths Relieving factors: rest Associated symptoms: chills, headache, nasal congestion, sore throat, cough, chest pain and shortness of breath Treatments prior to arrival: none Related Data Previous Rx's ?Medication ?Instructions ?Recorded chlorhexidine gluconate 0.12 % 15 ml buccal BID #118 mL 03/30/23 mouthwash (Peridex) Allergies Allergy/AdvReac Type Severity Reaction Status Date / Time No Known Allergies Allergy Verified 10/04/23 08:40 [No Known Allergies*] poison letty Allergy Unknown rash Uncoded 05/05/23 09:48 Review of Systems Review of Systems: Yes all other systems are reviewed and are negative PMFSH Past Medical History Medical History No known health problems Social History Social History Substance Use Type: Marijuana Advance Directives: No Advance Directives Information Provided: No Physical Exam Vital Signs: Vital Signs: Last Vital Signs Temp 98.7 F 10/04/23 08:38 Pulse 70 10/04/23 08:38 Resp 18 10/04/23 08:38 BP 105/67 10/04/23 08:38 Pulse Ox 99 10/04/23 08:38 O2 Del Method Room Air 10/04/23 08:38 BMI result Body Mass Index 26.2 Appearance: Alert. Oriented X3. No acute distress. Head: normocephalic, atraumatic. Eyes: Pupils equal, round and reactive to light. ENT: Pharynx normal. No tonsillar swelling or exudate. Neck: Normal inspection. Neck supple. CVS: Normal heart rate and rhythm. Pulses normal. Respiratory: No respiratory distress. Breath sounds normal. mild parasternal tenderness of the chest wall Abdomen: Soft and nontender. +BS x4 Skin: Skin warm and dry. Normal skin color. Normal skin turgor. No rashes. Extremities: No lower extremity edema. No joint swelling. negative Homans sign Neuro/psych: Oriented X 3. No motor deficit. No sensory deficit. CN II-XII intact. Normal speech and cognition. Medical Decision Making Medical Decision Making [facility] Narrative: 23-year-old male presents to the ER for evaluation of central nonradiating chest pains, cough, shortness of breath, headaches, body aches and chills that started 3 days ago. Doubt cardiac etiology. He has no risk factors. His EKG today has no ischemic changes. His lungs are clear to auscultation, doubt pneumonia. Viral studies today reveal he has COVID-19. He has not tachycardic or hypoxic. Doubt PE. Most likely some mild costochondritis from coughing. He appears well and is nontoxic. He was counseled on his diagnosis, management as well as return precautions. He is stable for discharge home with supportive care. Differential Diagnosis Differential Diagnoses: The differential diagnosis associated with the presentation includes strep, covid, flu, rsv, other viral syndrome, bronchitis, pneumonia, Doubt ACS or PE Lab Data [facility] Lab Attestation statement: I reviewed the patient's lab results. Labs: Lab Results 10/04/23 Range/Units 08:54 Influenza Type A (PCR) NEGATIVE (Negative) Influenza Type B (PCR) NEGATIVE (Negative) RSV RNA Qual (PCR) NEGATIVE (Negative) SARS-CoV-2 RNA (RT-PCR) POSITIVE A (Negative) S. pyogenes GrpA AD Negative (Negative) Independent Interpretation I performed an independent interpretation of an: EKG Interpretation: EKG with normal sinus rhythm, sinus arrhythmia, ventricular rate 64 beats per minute, normal TN interval, normal QTC, no ST segment elevations or depressions, mildly peaked T-waves in V3 and V4 External Record Review External record reviewed: Outpatient record and Prior outpatient labs Tests considered The following testing was considered but not selected: consider chest x-ray however his lungs are clear to auscultation, no respiratory distress and saturating well Prescription Management I considered prescription management with: Pain Medication and Antiviral Critical Care Time Critical Care Time Critical Care Time: No Discharge Plan Discharge Clinical Impression: COVID-19 Patient Disposition: Home, Self-Care Instructions: COVID-19 (Coronavirus Disease 2019) (ED) Additional Instructions: You were found to be COVID-19 POSITIVE today. Your exam and oxygen levels were normal. Rest. Drink plenty of fluids. Take over the counter cold/flu medications as needed for your symptoms. Take Tylenol and/or Motrin as needed for fevers and body aches. Follow up with your doctor as needed. If you shortness of breath worsens , if you develop difficulty breathing or any other concerning symptom come back to the ER for further evaluation. Prescriptions: No Action chlorhexidine gluconate [Peridex] 0.12 % mouthwash 15 ml buccal BID Qty: 118 0RF Stand Alone Forms: Work/School Release Print Language: Prydeinig
[2023-10-04 09:49] LABS: Influenza A PCR NEGATIVE (Negative); Influenza B PCR NEGATIVE (Negative); Resp Syncy Virus RNA Qual PCR NEGATIVE (Negative); SARS COV2 PCR INHOUSE POSITIVE (Negative)
[2023-10-04 10:18] VITALS: BP 105/67; PULSE 70; RESP 18; TEMP 37.1; O2SAT 99
== END 2023-10-04 10:30 | disposition home or self-care (01) ==
PROVIDERS: Emergency Provider Emergency Medicine
DX: U07.1 COVID-19 (principal); R07.89 Other chest pain; R05.9 Cough, unspecified; R06.02 Shortness of breath; R51.9 Headache, unspecified; F12.90 Cannabis use, unspecified, uncomplicated
CPT/HCPCS: 0241U; 87651; 93005; 99283

== ENCOUNTER → 2023-10-04 08:30 | Outpatient (BNV) | payer MEDICAID, SELFPAY | PROVIDERS: Emergency Provider Emergency Medicine; Visit Provider Internal Medicine Cardiovascular Disease | DX: R07.9 Chest pain, unspecified (principal); I49.8 Other specified cardiac arrhythmias | CPT/HCPCS: 93010 ==